=== PATIENT | male | born 1965 | race Caucasian/White ===

== ENCOUNTER 2020-05-04 07:39 | Outpatient (RCR) | payer OTHER, SELFPAY ==
[2020-04-27 08:47] VITALS: BMI 31.6
--- NOTE | 2020-04-27 09:06 | PM.CNOR ---
Assessment and Plan Assessment and plan (1) Foot ulcer, right: Qualifiers: Non-pressure ulcer stage: with necrosis of muscle Qualified Code(s): L97.513 - Non-pressure chronic ulcer of other part of right foot with necrosis of muscle Code(s): L97.519 - Non-pressure chronic ulcer of other part of right foot with unspecified severity Status: Acute Assessment and Plan: Updated history, physical exam and reviewed with the patient. Interval changes reviewed. Discussed the condition, nature, etiology and course of natural history with the patient. Treatment options including surgical and nonoperative treatment were reviewed. Risks and benefits of each as well as alternatives reviewed. The patient's questions were answered. Conservative treatment ice, compression and elevation. Ulcer debrided in the wound clinic. Wound care instructions given with silver foam, daily. Wash and dry. Discontinue Bactrim continue with Levaquin only for 1 week course. Follow up in 1 week for re-evaluation. (2) Peripheral neuropathy: Qualifiers: Peripheral neuropathy type: polyneuropathy associated with underlying disease Qualified Code(s): G63 - Polyneuropathy in diseases classified elsewhere Code(s): G62.9 - Polyneuropathy, unspecified Status: Acute Assessment and Plan: Orthotics evaluated. Excessive wear the metatarsal heads, no longer offloading. Medically indicated for new custom inserts. Medically necessary for custom prosthetic fit and fabrication. Patient condition requires custom fitting due to bone, joint, musculoskeletal deformity. Unable to fit with [id number] brace. Patient condition will be improved with bracing. Condition likely to deteriorate without custom support Indicated for custom full-length insert with metatarsal head offloading and pressure reduction History of Present Illness HPI Consult date: 04/27/20 Requesting physician: CORAL,PAMELA RIVERA Consult reason: other (foot ulcer) Chief complaint: L97.519 non-pressure chronic ulcer Right foot Narrative: 55-year-old gentleman presents to the [facility] wound clinic for consultation right foot ulcer. 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 New ulcer on the more plantar lateral aspect which appeared 1 week ago. Patient states he routinely shaves calluses and as he was doing this he noted bloody drainage. He has not had any fever, chills, pain. He was started oral antibiotics with Bactrim and Levaquin. Review of Systems Constitutional: Constitutional: Denies fever(s) Eyes: Eyes: Denies blurry vision ENT: Reports Normal hearing present Cardiovascular: Cardiovascular: Denies chest pain and Denies dyspnea Respiratory: Respiratory: Denies dyspnea and Denies wheezing Gastrointestinal: Gastrointestinal: Denies abdominal pain Genitourinary: Genitourinary: Denies urinary urgency Musculoskeletal: Musculoskeletal: Reports as per HPI and Reports numbness (Bilateral feet) Integumentary/Breasts: Skin/Breast: Denies changing lesions and Denies sores Neurologic: Reports Normal hearing present, Denies behavioral changes, Denies confusion, Reports numbness (Lower extremity) and Denies convulsions Psychiatric: Psychiatric: Denies behavioral changes, Denies confusion and Denies hallucinations Endocrine: Endocrine: Denies heat intolerance Hematologic/Lymphatic: Hematologic/Lymphatic: Denies easy bleeding Allergic/Immunologic: Allergic/Immunologic: Denies wheezing [facility] Past Medical History Medical History (Updated 04/27/20 @ 09:26 by Filiberto Phillips MD) Amputated toe of right foot Foot ulcer, right Osteomyelitis of ankle or foot, right, acute Peripheral neuropathy Family History Family History Grandparent Diabet
--- NOTE | 2020-05-04 08:43 | WPDWOUNDNOTE ---
Wound Care Note Date/Time: 05/04/20 08:43 Patient returns to the [facility] wound clinic today for reassessment of right plantar diabetic foot ulcer of the 5th metatarsal head. Patient with continued improvement in ulcer dimensions/appearance. He denies fever, chills, night sweats, nausea, vomiting or diarrhea. He reports well controlled BG levels. He has been ambulating in his regular shoes without difficulty. He has been performing daily dressing changes. Assessment and Plan Assessment and plan (1) Foot ulcer, right: Qualifiers: Non-pressure ulcer stage: with necrosis of muscle Qualified Code(s): L97.513 - Non-pressure chronic ulcer of other part of right foot with necrosis of muscle Code(s): L97.519 - Non-pressure chronic ulcer of other part of right foot with unspecified severity Status: Acute Assessment and Plan: Patient returned today 1 week s/p debridement of right DFU. History, exam and radiographs reviewed with the patient today. He reports improvement in appearance of her right DFU. Ulcer today measures 0.3x0.2x0.1cm, new granulation tissue noted. Recommended continuation of wound care with silver foam, daily until complete closure of wound. May wash. Follow up as needed. Discussed importance of daily foot checks and proper nutrition for optimal healing. Follow up PRN (2) Peripheral neuropathy: Qualifiers: Peripheral neuropathy type: polyneuropathy associated with underlying disease Qualified Code(s): G63 - Polyneuropathy in diseases classified elsewhere Code(s): G62.9 - Polyneuropathy, unspecified Status: Acute Assessment and Plan: Patient awaiting modifications to his orthotics at this time. Discussed importance of compliance for prevention of recurrent ulcer. Patient verbalized understanding. Follow up PRN. Review of Systems Constitutional: Constitutional: Denies fever(s) Eyes: Eyes: Denies blurry vision ENT: Reports Normal hearing present Cardiovascular: Cardiovascular: Denies chest pain and Denies dyspnea Respiratory: Respiratory: Denies dyspnea and Denies wheezing Gastrointestinal: Gastrointestinal: Denies abdominal pain Genitourinary: Genitourinary: Denies urinary urgency Musculoskeletal: Musculoskeletal: Reports as per HPI and Reports numbness (Bilateral feet) Integumentary/Breasts: Skin/Breast: Denies changing lesions and Denies sores Neurologic: Reports Normal hearing present, Denies behavioral changes, Denies confusion, Reports numbness (Lower extremity) and Denies convulsions Psychiatric: Psychiatric: Denies behavioral changes, Denies confusion and Denies hallucinations Endocrine: Endocrine: Denies heat intolerance Hematologic/Lymphatic: Hematologic/Lymphatic: Denies easy bleeding Allergic/Immunologic: Allergic/Immunologic: Denies wheezing Exam Const: General: healthy appearing; No in distress or confusion Orientation/consciousness: oriented to person, oriented to place, oriented to time and No confusion HENMT: Head: normal to inspection, normocephalic and atraumatic Eyes: Conjunctivae: conjunctivae normal Sclera: sclerae normal Neck: Neck: supple and nontender Resp: Effort & Inspection: normal respiratory effort and no audible wheezes Cardio: Rhythm: regular rhythm Skin: General skin exam: no rashes or lesions noted Neuro: General: oriented to person, oriented to place, oriented to time and No confusion Extrem: Right upper extremity: normal to inspection Left upper extremity: normal to inspection Right lower extremity: ankle and foot Left lower extremity: ankle and foot Other: Right lower extremity: ankle Details: normal to inspection, normal ROM ( dorsiflexion 5?, plantar flexion 45?, inversion 20?, eversion 10?) and other ( good stability all directions); no tenderness, no swelling and no ecchymosis and foot Details: abnormal to inspection Details: a deformity Location: of the great toe (dorsal incision) and other
== END 2020-07-16 12:28 | disposition home or self-care (01) ==
LOC: ANHWOC 07:39
PROVIDERS: Visit Provider Orthopaedic Surgery
DX: E11.621 Type 2 diabetes mellitus with foot ulcer (principal); L97.519 Non-pressure chronic ulcer of other part of right foot with unspecified severity
CPT/HCPCS: 11043; 99212; G0463